=== PATIENT | female | born 2000 | race Two or more races ===

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

== ENCOUNTER 2019-12-09 09:30 | Emergency (ER) | payer MEDICAID ==
[~2019-12-09] VITALS: Ht 167.6 cm; Wt 95.7 kg
--- NOTE | 2019-12-09 10:20 | NUR ---
[facility] care of pt. pt c/i intermittent sternal CP >2 weeks. pt reports that she was Dx COVID+ 11/22/19. pt reports that she has been self-isolating at home and reports that there are no other sick people in the home. pt reports that she is having intermittent SOB with deep inspiration that radiates across her chest. states that she has been using an inhaler that was Rx to her by but that she is taking it more than the recommended dose pt educatin regarding the importance of following dosing guidelines pt is 100% on RA but staets that she is still feeling SOB. speaking full sentences without difficulty. Jessica BEEBE at bedside for eval warm blankets and positioning for comfort
[2019-12-09] MEDS ORDERED: EREN70AU IM (10:28)
--- NOTE | 2019-12-09 10:39 | NUR ---
lab at bedside to draw CXR at bedside
--- NOTE | 2019-12-09 11:03 | NUR ---
report to Obed GEORGES
[2019-12-09 11:04] LABS: BASOPHILS % (AUTO) 1 % (0-1); EOSINOPHILS % (AUTO) 1 % (1-7); LYMPHOCYTES % (AUTO) 29 % (22-44); MEAN CORPUSCULAR HEMOGLOBIN 28.2 pg (27.0-34.8); MEAN PLATELET VOLUME 8.5 fL (7.4-10.4); MONOCYTES % (AUTO) 6 % (2-9); NEUTROPHILS % (AUTO) 64 % (42-75); PLATELET COUNT 328 x10^3/uL (130-400); RED BLOOD COUNT 4.64 x10^6/uL (3.82-5.3); RED CELL DISTRIBUTION WIDTH 15.8 % (9.6-15.2)
[2019-12-09 11:09] LABS: ALANINE AMINOTRANSFERASE 28 U/L (12-78); ALBUMIN 3.8 g/dL (3.4-5.0); ANION GAP 11 mmol/L (5-15); CALCIUM 8.9 mg/dL (8.5-10.1); CHLORIDE 107 mmol/L (98-107); CREATININE 0.69 mg/dL (0.55-1.02)
[2019-12-09 11:13] LABS: ALKALINE PHOSPHATASE 51 U/L (45-117); BILIRUBIN,TOTAL 0.3 mg/dL (0.2-1.0); TROPONIN I < 0.015 ng/mL (0.000-0.045)
[2019-12-09 11:15] LABS: MD NO
--- NOTE | 2019-12-09 11:51 | NUR ---
CALL TO XRAY, PT AWAITING CXR.
[2019-12-09 12:29] VITALS: BP 112/60
[2019-12-09] MEDS ORDERED: ACETAMINOPHEN 500 MG TABLET ONE (12:32)
[2019-12-09] MEDS ORDERED: ACETAMINOPHEN 500 MG TABLET PO ONE (13:00)
== END 2019-12-09 13:15 | disposition home or self-care (01) ==
LOC: ED 10:47
DX: O26.891 Other specified pregnancy related conditions, first trimester (principal); R07.89 Other chest pain; R06.02 Shortness of breath; G43.909 Migraine, unspecified, not intractable, without status migrainosus; Z3A.01 Less than 8 weeks gestation of pregnancy
CPT/HCPCS: 36415; 71045; 80053; 84484; 84702; 84703; 85025; 85379; 93005; 99285

== ENCOUNTER 2020-11-04 12:33 | Emergency (ER) | payer BC ==
[~2020-11-04] VITALS: Ht 167.6 cm; Wt 110.8 kg
[2020-11-04 12:41] VITALS: BP 109/58
== END 2020-11-04 14:53 | disposition home or self-care (01) ==
LOC: ED 14:51
DX: R09.1 Pleurisy (principal); G43.909 Migraine, unspecified, not intractable, without status migrainosus